=== PATIENT | female | born 1985 | race Caucasian/White ===

== ENCOUNTER 2017-03-03 23:11 | Emergency (ER) | payer SELFPAY ==
[2017-03-03 23:18] VITALS: BP 140/84; BMI 29.0
[2017-03-03] MEDS ORDERED: CLEOCIN PO ONE (23:47)
[2017-03-03] MEDS ORDERED: NORCO 5/325 MG TAB PO ONE (23:47)
[2017-03-03] MEDS ORDERED: CLEOCIN ONE (23:48)
[2017-03-03] MEDS ORDERED: NORCO 5/325 MG TAB ONE (23:48)
--- NOTE | 2017-03-03 23:53 | DR.GENAD ---
HPI - PCP Primary Care Physician: romina cruz - HPI Comment HPI Comment: A boil on chin noted x 1 week. It is enlarging and is tender. There is minimal drainage. She states it is uncomfortable chewing. She denies associated fever. 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 - Complaint/Symptoms Chief Complaint:: c/o abcess to chin; started two days ago; small amount of purulent drainage. Abcess is noted to chin with warmth and erythema, no drainage. Self Treatment fo Chief Complaint: goody powder - Nurses notes reviewed Nurses Notes Review: Yes - Source History Provided: Patient - Mode of Arrival Mode of Arrival: Ambulatory - Timing Onset of Chief Complaint: 03/01/17 Came on: Suddenly - Duration Duration: Weeks (1) - Severity Severity: Moderate - Modifying Factors Worsens:: nothing Improves:: nothing - Associated Signs and Symptoms Associated Signs and Symptoms: tenderness PMH - PMH Past Medical History: No Past Surgical History: Yes Surgical History: - Family History History of Family Medical Conditions: Yes Family Medical History: Diabetes Mellitus - Social History Type of Tobacco Use: Cigarettes Alcohol Use: None Do you use any recreational Drugs:: No Lives With: Family Lives Where: Home - infectious screening In the last 2 months have you had wt loss of >10#?: NO Have you had fever, night sweats or hemotysis?: No Have you traveled outside the country in the last 6 months?: No Isolation: Contact ROS - Review of Systems Constitutional: No Symptoms Reported Eyes: No Symptoms Reported Respiratoy: No Symptoms Reported Cardiovascular: No Symptoms Reported Gastrointestinal/Abdominal: No Symptoms Reported Genitourinary: No Symptoms Reported Neurological: No Symptoms Reported Musculoskeletal: No Symptoms Reported Integumentary: Other (boil on chin ) Hematologic/Lymphatic: No Symptoms Reported Endocrine: No Symptoms Reported Psychiatric: No Symptoms Reported All Other Systems: Reviewed and Negative PE - Vital Signs Vitals: Temperature 98.2 F Pulse Rate 100 Respiratory Rate 20 Blood Pressure 140/84 O2 Sat by Pulse Oximetry 94 - General Limitations: No Limitations General Appearance: Alert, In No Apparent Distress - Head Head Exam: Normal Inspection - Eyes Eye exam: Normal Appearance - ENT ENT Exam: Normal Exam - Neck Neck Exam: Normal Inspection - Chest Chest Inspection: Normal Inspection - Respiratory Respiratory Exam: Normal Lung Sounds Bilat - Cardiovascular Cardiovascular Exam: Regular Rate, Normal Rhythm - Abdominal Exam Abdominal Exam: Normal Inspection, Normal Bowel Sounds, Soft - Extremities Extremities Exam: Normal Inspection - Back Back Exam: Normal Inspection - Neurologic Neurological Exam: Alert, Oriented X3, CN II-XII Intact - Psychiatric Psychiatric Exam: Normal Affect, Normal Mood - Skin Skin Exam: Warm, Dry, Other (A large furuncle oted on her chin. It is still firm to touch but with a pustular head. It has no active drainage. There is surrounding erythema and tenderness. ) - Diagnosis Discharge Problem: Furuncle - Discharge Plan Disposition: 01 HOME, SELF-CARE Condition: Stable - Follow ups/Referrals Follow ups/Referrals: MAKENNA CRUZ [Primary Care Provider] - 3 days - Instructions
== END 2017-03-04 00:14 | disposition home or self-care (01) ==
LOC: ER 23:11
DX: L02.92 Furuncle, unspecified (principal)
CPT/HCPCS: 99282

== ENCOUNTER 2017-09-14 01:04 | Emergency (ER) | payer SELFPAY ==
[2017-09-14 01:13] VITALS: BP 122/80; BMI 31.6
[2017-09-14] MEDS ORDERED: TORADOL 60 MG VIAL IM ONE (01:38)
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
[2017-09-14] MEDS ORDERED: ADACEL TDaP IM ONE (01:53)
[2017-09-14] MEDS ORDERED: TORADOL 60 MG VIAL ONE (01:53)
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
== END 2017-09-14 03:41 | disposition home or self-care (01) ==
LOC: ER 01:04
DX: S80.219A Abrasion, unspecified knee, initial encounter (principal); S40.021A Contusion of right upper arm, initial encounter; S50.01XA Contusion of right elbow, initial encounter; V86.99XA Unspecified occupant of other special all-terrain or other off-road motor vehicle injured in nontraffic accident, initial encounter
CPT/HCPCS: 73090; 73130; 90471; 96372; 99282; J1885